=== PATIENT | female | born 1970 | race Caucasian/White ===

== ENCOUNTER 2016-05-16 17:55 | Emergency (ER) | payer OTHER ==
[2016-05-16 18:07] VITALS: BP 102/59; PULSE 84; TEMP 97.8; BMI 22.6
--- NOTE | 2016-05-16 20:32 | PDOC ---
History of Present Illness - General Chief Complaint: Pain Stated Complaint: RT LEG PAIN Time Seen by Provider: 05/16/16 19:37 History Source: Patient Exam Limitations: No Limitations - History of Present Illness Initial Comments: 05/16/16 20:26 Chief complaint: Right foot and anterior ankle pain History of present illness: Patient is a 46-year-old female here today complaining of right lateral foot and anterior ankle pain when walking or standing to lab 5 days. Patient denies any injury or fall. Patient does stand on her feet for long periods of time at her job. Patient has minimal swelling to her right lateral foot. Patient denies any numbness of the foot. Pain is currently a 5 out of 10 and aching in nature. 05/16/16 20:31 05/16/16 20:31 05/16/16 23:17 Occurred: reports: other (5 days) Severity: Yes: moderate Lower Extremity Pain Location: right: foot (lateral ), ankle (anterior) Method of Injury: Yes: unknown Modifying Factors: improves with: immobilization Lower Ext. Injury Location - Specific Injury Location Ankle: right pain (anterior) Foot: right foot pain (lateral ), right foot swelling (minimal laterally) Extremity Pain Location - Extremity Pain Location Extremity Pain Locations: right: foot (lateral ), ankle (anterior ) Past History - Past Medical History Allergies/Adverse Reactions: Allergies Allergy/AdvReac Type Severity Reaction Status Date / Time No Known Allergies Allergy Verified 05/16/16 18:03 Home Medications: Ambulatory Orders Naproxen [Naprosyn -] 500 mg PO BID PRN #14 tablet MDD 2 05/16/16 - Psycho/Social/Smoking Cessation Hx Anxiety: No Suicidal Ideation: No Smoking History: Current every day smoker Have you smoked in the past 12 months: No Number of Cigarettes Smoked Daily: 5 Information on smoking cessation initiated: Yes 'Breaking Loose' booklet given: 05/16/16 Hx Alcohol Use: No Drug/Substance Use Hx: No Substance Use Type: None Review of Systems - Review of Systems Able to Perform ROS?: Yes Constitutional: No: Symptoms Reported HEENTM: No: Symptoms Reported Respiratory: No: Symptoms reported Cardiac (ROS): No: Symptoms Reported ABD/GI: No: Symptoms Reported : No: Symptoms Reported Musculoskeletal: Yes: Joint Pain (rt. lateral foot/anterior ankle), Joint Swelling (rt. lateral foot ) Integumentary: No: Symptoms Reported Neurological: No: Symptoms reported *Physical Exam - Vital Signs Last Vital Signs Temp Pulse Resp BP Pulse Ox 97.8 F 84 18 102/59 99 05/16/16 18:02 05/16/16 18:02 05/16/16 18:02 05/16/16 18:02 05/16/16 18:02 - Physical Exam General Appearance: Yes: Appropriately Dressed Vascular Pulses: Dorsalis-Pedis (R): 4+ Extremity: positive: Normal Capillary Refill, Normal Inspection, Normal Range of Motion, Tender (rt. lateral ankle/anterior foot ), Swelling (rt. lateral foot ) Integumentary: positive: Ecchymosis (faint area of eccymosis rt. lateral dorsal foot ) Neurologic: positive: Alert, Normal Response, Respond to painful stimul (right foot ). negative: Numbness (rt. ft) Procedures - Consent Consent obtained: From Patient - Splinting Splint Location: Right: Foot, Ankle Pre-Proc Neuro Vasc Exam: normal Pre-Made Type: aircast Devon Bandage: 3" Complications: No Medical Decision Making - Medical Decision Making 05/16/16 20:31 05/16/16 20:31 Patient is a 46-year-old female here today complaining of right lateral foot and anterior ankle pain when walking or standing to lab 5 days. Patient denies any injury or fall. Patient does stand on her feet for long periods of time at her job. Patient has minimal swelling to her right lateral foot. Patient denies any numbness of the foot. Pain is currently a 5 out of 10 and aching in nature. Right lateral foot sprain rt. ankle sprain PLAN: devon wrap 3 inch rt foot/ankle aircast naprosy 500 mg bid prn 14 tabs ortho follow up *DC/Admit/Observation/Transfer Diagnosis at time of Disposition: Sprain of foot, right Qualifiers: Encounter type: initial encounter Qualified Code(s): S93.601A - Unspecified sprain of right foot, initial encounter Sprain of ankle, right Qualifiers: Encounter type: initial encounter Involved ligament of ankle: unspecified ligament Qualified Code(s): S93.401A - Sprain of unspecified ligament of right ankle, initial encounter - Discharge Dispostion Disposition: HOME Condition at time of disposition: Stable - Prescriptions Prescriptions: Naproxen [Naprosyn -] 500 mg PO BID PRN #14 tablet MDD 2 PRN Reason: Pain - Referrals Referrals: Tana Juares NP [Primary Care Provider] - Pineda Cerda MD [Staff Physician] - - Patient Instructions Additional Instructions: Apply Devon wrap during the day and use air cast for support on right foot Follow-up with orthopedist if pain continues Return to emergency room if symptoms worsen The patient voiced understanding of discharge instructions and all questions were answered - Post Discharge Activity Work/School Note: Back to Work
== END 2016-05-16 21:04 | disposition home or self-care (01) ==
LOC: JERFT 17:55
PROC: 2W3LX1Z Immobilization of Right Lower Extremity using Splint (ICD-10-PCS; principal; 2016-05-16)
DX: M79.661 Pain in right lower leg (principal); S93.491A Sprain of other ligament of right ankle, initial encounter; S93.691A Other sprain of right foot, initial encounter; X58.XXXA Exposure to other specified factors, initial encounter; Y93.89 Activity, other specified; Y92.89 Other specified places as the place of occurrence of the external cause
CPT/HCPCS: 99281-25

== ENCOUNTER 2016-07-19 15:35 | Emergency (ER) | payer OTHER ==
[2016-07-19 15:41] VITALS: BP 115/81; PULSE 88; TEMP 97.8; BMI 22.2
--- NOTE | 2016-07-19 15:49 | PDOC ---
Rapid Medical Evaluation Time Seen by Provider: 07/19/16 15:37 Medical Evaluation: Allergies Allergy/AdvReac Type Severity Reaction Status Date / Time No Known Allergies Allergy Verified 05/16/16 18:03 07/19/16 15:37 I have performed a brief in-person evaluation of this patient. The patient presents with a chief complaint of: sore throat and occipital headache x 3 days. + myalgia, no travel Pertinent physical exam findings: no pharygeal erythema, vss, I have ordered the following: none The patient will proceed to fast track for further evaluation.
--- NOTE | 2016-07-19 16:30 | PDOC ---
History of Present Illness - General Chief Complaint: Sore Throat Stated Complaint: SORE THROAT Time Seen by Provider: 07/19/16 15:37 - History of Present Illness Initial Comments: 07/19/16 16:24 CHIEF COMPLAINT: sore throat HISTORY OF PRESENT ILLNESS: 46 yo with no PMH presents to [facility] with throat pain since yesterday. Patient states she is able to swallow but "has a lot of phlegm." Patient denies any fever or cough, but does report generalized body aches and headache to back of head. Patient denies any trauma or injury to head. She denies LOC, nausea, vomiting, diarrhea. PAST MEDICAL HISTORY: Denies past medical history FAMILY HISTORY: Denies SOCIAL HISTORY: Current smoker, 3-4 cigarettes daily. Denies alcohol, illicit drug use. SURGICAL HISTORY: ALLERGIES: No known drug allergies REVIEW OF SYSTEMS General/Constitutional: Denies fever or chills. Denies weakness, weight change. HEENT: Throat pain x 1 day. Denies change in vision. Denies ear pain or discharge. Denies sore throat. Cardiovascular: Denies chest pain or shortness of breath. Respiratory: Denies cough, wheezing, or hemoptysis. Gastrointestinal: Denies nausea, vomiting, diarrhea or constipation. Denies rectal bleeding. Genitourinary: Denies dysuria, frequency, or change in urination. Musculoskeletal: Denies joint or muscle swelling or pain. Denies neck or back pain. PHYSICAL EXAM General Appearance: Well-appearing, appropriately dressed. No apparent distress. HEENT: Tonsils 1+ bilaterally, no erythema, edema, or exudate. EOMI, PERRLA, normal ENT inspection, normal voice, TMs normal, pharynx normal. No conjunctival pallor. No photophobia, scleral icterus. Neck: Supple. Trachea midline. No tenderness, rigidity, carotid bruit, stridor , lymphadenopathy, or thyromegaly. Respiratory/Chest: Lungs CTAB. Cardiovascular: RRR. S1, S2. Integumentary: Appropriate color, dry, warm. No cyanosis, erythema, jaundice or rash Neurologic: sales forecast analyst II-XII intact. Fully oriented, alert. Appropriate mood/affect. No appreciable EOM palsy, facial droop or sensory deficit. Past History - Past Medical History Allergies/Adverse Reactions: Allergies Allergy/AdvReac Type Severity Reaction Status Date / Time No Known Allergies Allergy Verified 07/19/16 15:37 Home Medications: Ambulatory Orders Ibuprofen 600 mg PO Q6H PRN #28 tablet 07/19/16 Other medical history: NONE - Psycho/Social/Smoking Cessation Hx Anxiety: No Suicidal Ideation: No Smoking History: Current every day smoker Have you smoked in the past 12 months: Yes Number of Cigarettes Smoked Daily: 4 Information on smoking cessation initiated: Yes 'Breaking Loose' booklet given: 07/19/16 Hx Alcohol Use: No Drug/Substance Use Hx: No Substance Use Type: None *Physical Exam - Vital Signs Last Vital Signs Temp Pulse Resp BP Pulse Ox 97.8 F 88 18 115/81 100 07/19/16 15:38 07/19/16 15:38 07/19/16 15:38 07/19/16 15:38 07/19/16 15:38 Medical Decision Making - Medical Decision Making 07/19/16 16:29 46 yo F with no PMH presents to ED with throat pain and body aches x 1 day. -Rapid strep and flu swabs Strep and flu negative. -600 mg ibuprofen q6h PRN body aches/fever Advised patient to take medication as prescribed and follow up with primary care doctor next week. Advised patient of signs and symptoms for return to ED. Patient verbalized understanding and agrees to plan. *DC/Admit/Observation/Transfer Diagnosis at time of Disposition: Viral syndrome - Discharge Dispostion Disposition: HOME Condition at time of disposition: Stable Admit: No - Prescriptions Prescriptions: Ibuprofen 600 mg PO Q6H PRN #28 tablet PRN Reason: Fever Or Pain - Referrals Referrals: Tana Juares NP [Primary Care Provider] - - Patient Instructions Printed Discharge Instructions: DI for Viral Syndrome Additional Instructions: Please take medication as prescribed and follow up with your primary care doctor next week. If you develop fever unresolved by Motrin; nausea; vomiting; diarrhea; chest pain; shortness of breath; weakness to one side; change in vision; difficulty speaking, swallowing, or breathing, or any new or worsening symptoms, please return to the ER. Por favor, tome los medicamentos segn lo prescrito y seguir con ronquillo mdico de atencin primaria la prxima semana. Si usted desarrolla fiebre no resuelta por Motrin; nusea; vmito; riarrea; rolor de pecho; dificultad para respirar; debilidad a un lado; cambio de visin; dificultad para hablar, tragar o respirar , o cualquier nuevo o empeoramiento de los sntomas, por favor regrese a la jimi de emergencias.
== END 2016-07-19 16:51 | disposition home or self-care (01) ==
LOC: JERFT 15:35
DX: B34.9 Viral infection, unspecified (principal)
CPT/HCPCS: 87070; 87430; 87804; 99281-25

== ENCOUNTER 2017-04-08 15:35 | Emergency (ER) | payer OTHER ==
[2017-04-08 15:43] VITALS: BP 109/74; PULSE 93; TEMP 97.4; BMI 22.6
--- NOTE | 2017-04-08 15:44 | PDOC ---
Rapid Medical Evaluation Time Seen by Provider: 04/08/17 15:38 Medical Evaluation: Allergies Allergy/AdvReac Type Severity Reaction Status Date / Time No Known Allergies Allergy Verified 04/08/17 15:38 04/08/17 15:40 Pt here with c/o : rt breast redness and lump x 3 days, No injury, no dm, had 3 years ago , + response to abx,-mammo Pt briefly examined: 1 x 2 cm erythematous tender raised mass to 3 o' clock on rt nipple. No discharge. no dimpling Pt ordered for : none pt to proceed to the main ED Discharge Disposition - Diagnosis Breast abscess of female - Discharge Dispostion Disposition: HOME Condition at time of disposition: Stable - Prescriptions Prescriptions: Cephalexin Monohydrate [Keflex -] 500 mg PO Q6H #40 capsule Ibuprofen [Motrin -] 400 mg PO QID #28 tablet - Referrals Referrals: Tana Juares NP [Primary Care Provider] - - Patient Instructions Printed Discharge Instructions: DI for Skin Abscess Additional Instructions: Warm compresses 15-20 minutes at a time 3-4 times a day. Complete course of antibiotic therapy as prescribed Return to ED immediately if any signs of infection such as fever, increasing pain, swelling, streaking redness, or if symptoms worsen or any concerns. - Post Discharge Activity Work/School Note: Back to Work
--- NOTE | 2017-04-08 17:18 | PDOC ---
History of Present Illness - General Chief Complaint: Abscess Boil Stated Complaint: ABSCESS ON CHEST/ RT ARM PAIN Time Seen by Provider: 04/08/17 15:38 History Source: Patient Exam Limitations: No Limitations - History of Present Illness Initial Comments: 04/08/17 17:13 CHIEF COMPLAINT: Painful erythematous raised area to right breast HISTORY OF PRESENT ILLNESS: Patient is a 46-year-old female with history of abscesses presents with painful, raised erythematous area is at 3:00 out a edge of right nipple. Patient reports history of the same 3 years ago and was given antibiotics and area healed. Patient denies any fever. Erythema and edema started 4 days ago to area. Timing/Duration: reports: getting worse Severity: Yes: moderate Respiratory Risk Factors: reports: no cause identified Associated Symptoms: reports: denies symptoms. denies: swelling/mass/lumps Past History - Past Medical History Allergies/Adverse Reactions: Allergies Allergy/AdvReac Type Severity Reaction Status Date / Time No Known Allergies Allergy Verified 04/08/17 15:38 Home Medications: Ambulatory Orders Cephalexin Monohydrate [Keflex -] 500 mg PO Q6H #40 capsule 04/08/17 Ibuprofen [Motrin -] 400 mg PO QID #28 tablet 04/08/17 COPD: No - Suicide/Smoking/Psychosocial Hx Smoking History: Current every day smoker Have you smoked in the past 12 months: Yes Number of Cigarettes Smoked Daily: 4 Information on smoking cessation initiated: Yes 'Breaking Loose' booklet given: 04/08/17 Hx Alcohol Use: No Drug/Substance Use Hx: No Substance Use Type: None Review of Systems - Review of Systems Constitutional: No: Symptoms Reported HEENTM: No: Symptoms Reported Respiratory: No: Symptoms reported Cardiac (ROS): No: Symptoms Reported ABD/GI: No: Symptoms Reported : No: Symptoms Reported Musculoskeletal: No: Symptoms Reported Integumentary: Yes: Erythema, Lesions, Other (no nipple discharge, dimpling, no erythema or evidence of cellulitis areas localized. ). No: Bruising, Change in Color Neurological: No: Symptoms reported Hematologic/Lymphatic: No: Symptoms Reported All Other Systems: Reviewed and Negative *Physical Exam - Vital Signs Last Vital Signs Temp Pulse Resp BP Pulse Ox 97.4 F L 93 H 18 109/74 100 04/08/17 15:39 04/08/17 15:39 04/08/17 15:39 04/08/17 15:39 04/08/17 15:39 - Physical Exam General Appearance: Yes: Appropriately Dressed. No: Apparent Distress Neck: negative: Tender lateral, Tender midline Respiratory/Chest: positive: Lungs Clear, Normal Breath Sounds. negative: Respiratory Distress, Accessory Muscle Use Cardiovascular: positive: Regular Rhythm, Regular Rate Gastrointestinal/Abdominal: positive: Normal Bowel Sounds, Soft. negative: Tender Lymphatic: negative: Adenopathy Musculoskeletal: positive: Normal Inspection Extremity: positive: Normal Capillary Refill, Normal Inspection, Normal Range of Motion, Pelvis Stable. negative: Tender Integumentary: positive: Erythema, Other (painful well-defined lesion with no induration surrounding to outer border at 3:00 on right fifth toe. No fluctuance.). negative: Swelling, Ecchymosis, Bruising Neurologic: positive: Alert, Normal Mood/Affect, Normal Response, Motor Strength 5/5 Medical Decision Making - Medical Decision Making 04/08/17 17:20 A/P: Patient with abscess to right breast well-defined, no surrounding cellulitis. Area is nonfluctuant will start patient on antibiotics warm soaks to area which strict follow-up with surgery or return back to ER. No area of fluctuance to obtain culture past chart reviewed and patient passed culture was susceptible to Keflex. Will start patient on Keflex no evidence of MRSA high suspicion for folliculitis near the hair follicle. I discussed the physical exam findings, ancillary test results and final diagnoses with the patient. I answered all of the patient's questions. The patient was satisfied with the care received and felt comfortable with the discharge plan and treatment plan. The patient will call to arrange follow-up and will return to the Emergency Department with any new, persistent or worsening symptoms. *DC/Admit/Observation/Transfer Diagnosis at time of Disposition: Breast abscess of female - Discharge Dispostion Disposition: HOME Condition at time of disposition: Stable Admit: No - Prescriptions Prescriptions: Cephalexin Monohydrate [Keflex -] 500 mg PO Q6H #40 capsule Ibuprofen [Motrin -] 400 mg PO QID #28 tablet - Referrals Referrals: aTna Juares NP [Primary Care Provider] - - Patient Instructions Printed Discharge Instructions: DI for Skin Abscess Additional Instructions: Warm compresses 15-20 minutes at a time 3-4 times a day. Complete course of antibiotic therapy as prescribed Return to ED immediately if any signs of infection such as fever, increasing pain, swelling, streaking redness, or if symptoms worsen or any concerns. - Post Discharge Activity Forms/Work/School Notes: Back to Work
== END 2017-04-08 17:37 | disposition home or self-care (01) ==
LOC: JERFT 15:35
DX: N61.1 Abscess of the breast and nipple (principal)
CPT/HCPCS: 99281-25

== ENCOUNTER 2017-09-25 19:53 | Emergency (ER) | payer SELFPAY ==
--- NOTE | 2017-09-25 19:56 | PDOC ---
Rapid Medical Evaluation Time Seen by Provider: 09/25/17 19:54 Medical Evaluation: Allergies Allergy/AdvReac Type Severity Reaction Status Date / Time No Known Allergies Allergy Verified 04/08/17 15:38 09/25/17 19:54 I have performed a brief in-person evaluation of this patient. The patient presents with a chief complaint of: chin cyst for 6 months Pertinent physical exam findings: firm mobile submental mass I have ordered the following: nothing The patient will proceed to the ED for further evaluation. Discharge Disposition - Diagnosis Mass of chin - Referrals - Patient Instructions - Post Discharge Activity
[2017-09-25 20:02] VITALS: BP 111/74; PULSE 86; TEMP 98.1; BMI 22.6
--- NOTE | 2017-09-25 21:42 | PDOC ---
History of Present Illness - General Chief Complaint: Abscess Boil Stated Complaint: ABSCESS BOIL Time Seen by Provider: 09/25/17 19:54 History Source: Patient Exam Limitations: No Limitations - History of Present Illness Initial Comments: 09/25/17 21:38 47-year-old female with worsening mass underneath her chin for the past 2 years stating discomfort has increased for the past few months. Patient states was seen by a surgeon and a manager produce and was given pills but states that this time she feels she needs surgery. Patient denies fever, chills or drainage. Patient states does not have insurance so November 09 but is uncomfortable and is asking for pain meds along with a referral to another surgeon. Timing/Duration: reports: constant, getting worse Severity: Yes: mild Location: reports: face Respiratory Risk Factors: reports: no cause identified Associated Symptoms: reports: swelling/mass/lumps Past History - Past Medical History Allergies/Adverse Reactions: Allergies Allergy/AdvReac Type Severity Reaction Status Date / Time No Known Allergies Allergy Verified 09/25/17 19:57 Home Medications: Ambulatory Orders NK [No Known Home Medication] 09/25/17 COPD: No - Suicide/Smoking/Psychosocial Hx Smoking History: Current every day smoker Have you smoked in the past 12 months: Yes Number of Cigarettes Smoked Daily: 5 Information on smoking cessation initiated: Yes 'Breaking Loose' booklet given: 09/25/17 Hx Alcohol Use: No Drug/Substance Use Hx: No Substance Use Type: None Patient Lives Alone: No Lives with/in: spouse/SO Review of Systems - Review of Systems Able to Perform ROS?: No Constitutional: No: Symptoms Reported HEENTM: No: Symptoms Reported Respiratory: No: Symptoms reported Cardiac (ROS): No: Symptoms Reported ABD/GI: No: Symptoms Reported : No: Symptoms Reported Musculoskeletal: No: Symptoms Reported Integumentary: Yes: Lumps. No: Erythema Neurological: No: Symptoms reported *Physical Exam - Vital Signs Last Vital Signs Temp Pulse Resp BP Pulse Ox 98.1 F 86 18 111/74 100 09/25/17 19:58 09/25/17 19:58 09/25/17 19:58 09/25/17 19:58 09/25/17 19:58 - Physical Exam General Appearance: Yes: Nourished, Appropriately Dressed. No: Apparent Distress Integumentary: positive: Other (noted raised purpleish papule measuring 2 x 0.5 cm to submental region. ) Neurologic: positive: Motor Strength 5/5 (ambulatory) Medical Decision Making - Medical Decision Making 09/25/17 21:45 Patient worsening mass to her submental region. Patient ordered for facial CT. Facial CT read as a 1.8 x 1.5 cystic lesion. Pt to be given Percocet here and discharged with the same. Patient also will be given referral to Dr. Hurst general surgeon *DC/Admit/Observation/Transfer Diagnosis at time of Disposition: Mass of chin - Discharge Dispostion Disposition: HOME - Referrals Referrals: Tana Juares NP [Primary Care Provider] - Jorge Hurst MD [Staff Physician] - - Patient Instructions Printed Discharge Instructions: DI for Epidermal Cyst Additional Instructions: take Percocet for discomfort and please follow up with referred surgeon. - Post Discharge Activity
== END 2017-09-25 21:54 | disposition home or self-care (01) ==
LOC: JERFT 19:53
DX: L72.8 Other follicular cysts of the skin and subcutaneous tissue (principal)
CPT/HCPCS: 70486-TC; 99281-25

== ENCOUNTER 2017-09-29 14:21 | Emergency (ER) | payer SELFPAY ==
--- NOTE | 2017-09-29 14:32 | PDOC ---
Rapid Medical Evaluation Time Seen by Provider: 09/29/17 14:31 Medical Evaluation: Allergies Allergy/AdvReac Type Severity Reaction Status Date / Time No Known Allergies Allergy Verified 09/25/17 19:57 09/29/17 14:33 Healthy 47 year old female with 6 months of submental mass. Seen here 09/[address] reporting cystic mass of uncertain etiology. Given pain meds and surgery referral, but does not feel that she can wait. Now complains of dizziness, subjective fever/chills. Alert, oriented, no distress. Fluctuant submental mass, erythematous, with central pustule that appears to have been draining recently. V/s unremarkable. Plan: -Basic labs given systemic complaints and possible need for procedure -To Main ED for further evaluation
[2017-09-29 14:36] VITALS: BP 102/75; PULSE 88; TEMP 98.1; BMI 22.6
[2017-09-29 15:52] LABS: INR 0.98 (0.82-1.09); PROTHROMBIN TIME (PATIENT) 11.1 SEC (9.7-13.0)
[2017-09-29 16:01] LABS: ANION GAP 5 (8-16); BILIRUBIN,TOTAL 0.2 mg/dL (0.2-1.0); BLOOD UREA NITROGEN 11 mg/dL (7-18); CHLORIDE 110 mmol/L (98-107); CO2 28 mmol/L (21-32); CREATININE 0.8 mg/dL (0.55-1.02); GLUCOSE,RANDOM 115 mg/dL (74-106); POTASSIUM 3.6 mmol/L (3.5-5.1); SODIUM 143 mmol/L (136-145)
[2017-09-29 16:08] LABS: BASO % 0.5 % (0-2.0); EOS % 1.8 % (0-4.5); HEMATOCRIT 42.7 % (32.4-45.2); HEMOGLOBIN 14.2 GM/dL (10.7-15.3); LYMPH % 36.6 % (8-40); MCH 29.7 pg (25.7-33.7); MCHC 33.4 g/dl (32.0-36.0); MEAN PLT VOLUME 8.3 fl (7.5-11.1); MONO % 4.1 % (3.8-10.2); PLATELET COUNT 231 K/MM3 (134-434); WHITE BLOOD COUNT 6.3 K/mm3 (4.0-10.0)
[2017-09-29 16:31] LABS: ALK PHOS 89 U/L (45-117); SGOT/AST 16 U/L (15-37); SGPT/ALT 24 U/L (12-78)
--- NOTE | 2017-09-29 17:19 | PDOC ---
Attending Attestation - HPI HPI: 09/29/17 17:24 The patient is a 47 year old female with no significant past medical history presents to the emergency department with a worsening submental mass for the past 2 years. The patient was seen on the by SUDHIR Hein who prescribed her Percocet. The patient has a MRI done in 2016 which showed an increase in the mass size. The origin of the mass doesn't appear to be dental. The patient denies any complication to the air way. Denies any purulent or bloody discharge. Allergies: NKDA Social history: History of smoking. Denies the use of alcohol or illicit drugs. PCP: Dr. Tana Juares 09/29/17 20:52 - Physicial Exam PE: 09/29/17 17:24 GENERAL: Well developed, well nourished. Awake and alert. No acute distress. HEENT:No abcess in the oral cavity. In the oral cavity doesnt appear any continuation the the roof of the mouth. reproducible occlusion. Normocephalic, atraumatic. PERRLA, EOMI. No conjunctival pallor. Sclera are non- icteric. Moist mucous membranes. Oropharynx is clear. NECK: (+) 2 cm circular mass with abscess. No airway compromise. Supple. Full ROM. No JVD. Carotid pulses 2+ and symmetric, without bruits. No Trismus. - Medical Decision Making 09/29/17 17:25 Documentation prepared by Laly Laguna, acting as medical laboratory manager for Paty López MD. 09/29/17 17:25 Dr. Webb was called at 5:09 PM and a voicemail was left. <Laly Laguna - Last Filed: 09/29/17 20:52> - Resident Resident Name: Rene Elliott - ED Attending Attestation I have performed the following: I have examined & evaluated the patient, The case was reviewed & discussed with the resident, I agree w/resident's findings & plan, Exceptions are as noted - HPI HPI: 09/29/17 17:17 47-year-old female who is had an infected cyst under her chin for the past several years and it has become infected. She recently was seen in the ER and started on antibiotics. - Physicial Exam PE: 09/29/17 17:19 37-year-old female who fell mental status is intact. Initial evaluation has no significant dental abscesses, there are no buccal or sublingual fast swellings, reproducible occlusion, no trismus There is a noted 2 cm round nodule under her chin has some erythema, but there is no streaking or significant is there swelling. There is no evidence of cellulitis - Medical Decision Making 09/29/17 17:22 Labs reviewed and her white count is within normal limits, she has no fever 10/01/17 00:24 PT STARTED ON ANTIBIOTICS,BACITRACIN OINTMENT THE CYST IS DRAINING PURULENCE PT TO TAKE HER ANTIBIOTICS S AND FOLLOW UP WITH DERMATOLOGY DR Person <Paty López - Last Filed: 10/01/17 00:25>
--- NOTE | 2017-09-29 18:35 | PDOC ---
History of Present Illness <Paty López - Last Filed: 09/29/17 18:35> - General History Source: Patient Exam Limitations: No Limitations - History of Present Illness Initial Comments: 09/29/17 19:08 The patient is a 47 year old female with no significant past medical history presents to the emergency department with a worsening submental mass for the past 2 years. The patient was seen on the by SUDHIR Hein who prescibed her Percocet . The patient has a MRI done in 2016 which showed an increase in the mass size. The origin of the mass doesn't appear to be dental. The patient denies any complication to the air way. Denies any purulent or bloody discharge. Allergies: NKDA Social history: History of smoking. Denies the use of alcohol or illicit drugs. <Laly Laguna - Last Filed: 09/29/17 20:52> - General Chief Complaint: Abscess Boil Stated Complaint: REVISIT, ABSCESS BOIL Time Seen by Provider: 09/29/17 14:31 Past History - Past Medical History COPD: No Other medical history: DENIES. - Suicide/Smoking/Psychosocial Hx Smoking History: Current every day smoker Have you smoked in the past 12 months: Yes Number of Cigarettes Smoked Daily: 5 Information on smoking cessation initiated: No 'Breaking Loose' booklet given: 09/25/17 Hx Alcohol Use: No Drug/Substance Use Hx: No Substance Use Type: None <Paty López - Last Filed: 09/29/17 18:35> <Laly Laguna - Last Filed: 09/29/17 20:52> - Past Medical History Allergies/Adverse Reactions: Allergies Allergy/AdvReac Type Severity Reaction Status Date / Time No Known Allergies Allergy Verified 09/29/17 14:32 Home Medications: Ambulatory Orders Oxycodone HCl/Acetaminophen [Percocet 5-325 mg Tablet] 1 - 2 tab PO Q6H PRN #12 tab MDD 4 09/25/17 Bacitracin - [Bacitracin Topical Ointment -] 1 applic TP TID PRN #1 tube Sulfamethoxazole/Trimethoprim [Bactrim Ds -] 1 tab PO DAILY #20 tablet 09/29/17 Review of Systems - Review of Systems Able to Perform ROS?: Yes Comments:: 09/29/17 19:09 CONSTITUTIONAL: Absent: fever, no chills, no fatigue EYES: Absent: visual changes ENT:(+) Mass under the chin. Absent: ear pain, no sore throat MUSKULOSKELETAL: Absent: back pain, no arthralgia, no myalgia SKIN: Absent: rash NEURO: Absent: headache <Laly Laguna - Last Filed: 09/29/17 20:52> *Physical Exam - Vital Signs Last Vital Signs Temp Pulse Resp BP Pulse Ox 98.1 F 88 19 102/75 100 09/29/17 14:32 09/29/17 14:32 09/29/17 14:32 09/29/17 14:32 09/29/17 14:32 <Paty López - Last Filed: 09/29/17 18:35> - Vital Signs Last Vital Signs Temp Pulse Resp BP Pulse Ox 98.1 F 88 19 102/75 100 09/29/17 14:32 09/29/17 14:32 09/29/17 14:32 09/29/17 14:32 09/29/17 14:32 - Physical Exam Comments: 09/29/17 19:07 GENERAL: Well developed, well nourished. Awake and alert. No acute distress. HEENT:No abcess in the oral cavity. In the oral cavity doesnt appear any continuation the the roof of the mouth. reproducible occlusion. Normocephalic, atraumatic. PERRLA, EOMI. No conjunctival pallor. Sclera are non- icteric. Moist mucous membranes. Oropharynx is clear. NECK: (+) 2 cm circular mass with abscess. No airway compromise. Supple. Full ROM. No JVD. Carotid pulses 2+ and symmetric, without bruits. No Trismus. As the patient was waiting to be discharged, the mass started to drain pus. <Laly Laguna - Last Filed: 09/29/17 20:52> Moderate Sedation - Procedure Monitoring Vital Signs: Vital Signs Temp Pulse Resp BP Pulse Ox 98.1 F 88 19 102/75 100 09/29/17 14:32 09/29/17 14:32 09/29/17 14:32 09/29/17 14:32 09/29/17 14:32 <Paty López - Last Filed: 09/29/17 18:35> - Procedure Monitoring Vital Signs: Vital Signs Temp Pulse Resp BP Pulse Ox 98.1 F 88 19 102/75 100 09/29/17 14:32 09/29/17 14:32 09/29/17 14:32 09/29/17 14:32 09/29/17 14:32 <Laly Laguna - Last Filed: 09/29/17 20:52> ED Treatment Course - LABORATORY CBC & Chemistry Diagram: 09/29/17 15:21 09/29/17 15:21 - ADDITIONAL ORDERS Additional order review: Laboratory Results 09/29/17 09/29/17 09/29/17 15:27 15:21 15:21 PT with INR 11.10 INR 0.98 Sodium 143 Potassium 3.6 Chloride 110 H Carbon Dioxide 28 Anion Gap 5 L BUN 11 Creatinine 0.8 Creat Clearance w eGFR > 60 Random Glucose 115 H Calcium 9.0 Total Bilirubin 0.2 AST 16 ALT 24 Alkaline Phosphatase 89 Total Protein 7.0 Albumin 4.0 Urine HCG, Qual Negative 09/29/17 15:21 RBC 4.80 MCV 89.0 MCHC 33.4 RDW 13.0 MPV 8.3 Neutrophils % 57.0 Lymphocytes % 36.6 Monocytes % 4.1 Eosinophils % 1.8 Basophils % 0.5 <Paty López - Last Filed: 09/29/17 18:35> - LABORATORY CBC & Chemistry Diagram: 09/29/17 15:21 09/29/17 15:21 - ADDITIONAL ORDERS Additional order review: Laboratory Results 09/29/17 09/29/17 09/29/17 15:27 15:21 15:21 PT with INR 11.10 INR 0.98 Sodium 143 Potassium 3.6 Chloride 110 H Carbon Dioxide 28 Anion Gap 5 L BUN 11 Creatinine 0.8 Creat Clearance w eGFR > 60 Random Glucose 115 H Calcium 9.0 Total Bilirubin 0.2 AST 16 ALT 24 Alkaline Phosphatase 89 Total Protein 7.0 Albumin 4.0 Urine HCG, Qual Negative 09/29/17 15:21 RBC 4.80 MCV 89.0 MCHC 33.4 RDW 13.0 MPV 8.3 Neutrophils % 57.0 Lymphocytes % 36.6 Monocytes % 4.1 Eosinophils % 1.8 Basophils % 0.5 <Laly Laguna - Last Filed: 09/29/17 20:52> *DC/Admit/Observation/Transfer <Paty López - Last Filed: 09/29/17 18:35> - Attestations Scribe Attestion: 09/29/17 19:10 Documentation prepared by Laly Laguna, acting as medical director for Paty López MD. <Laly Laguna - Last Filed: 09/29/17 20:52> Diagnosis at time of Disposition: Infected cyst of skin - Discharge Dispostion Disposition: HOME Condition at time of disposition: Stable - Prescriptions Prescriptions: Bacitracin - [Bacitracin Topical Ointment -] 1 applic TP TID PRN #1 tube PRN Reason: Wound Care Sulfamethoxazole/Trimethoprim [Bactrim Ds -] 1 tab PO DAILY #20 tablet - Referrals Referrals: Meghan Eastman MD [Staff Physician] - Law Webb MD [Staff Physician] - Arielle Young MD [Staff Physician] - - Patient Instructions Printed Discharge Instructions: DI for Skin Abscess Additional Instructions: FINISH YOUR ANTIBIOTICS YOU NEED TO FOLLOW UP WITH THE AUTO MECHANICS INSTRUCTOR OR THE PLASTIC SURGEON TO HAVE IT REMOVED
[2017-09-29] MEDS ORDERED: SULFAMETHOXAZOLE/TRIMETHOPRIM 800MG/160MG D.S. TABLET PO ONE (19:05)
[2017-09-29] MEDS ORDERED: SULFAMETHOXAZOLE/TRIMETHOPRIM 800MG/160MG D.S. TABLET ONE (19:12)
== END 2017-09-29 19:27 | disposition home or self-care (01) ==
LOC: JER 14:21
DX: L72.8 Other follicular cysts of the skin and subcutaneous tissue (principal)
CPT/HCPCS: 36415; 80053; 84703; 85025; 85610; 99282-25

== ENCOUNTER 2018-02-11 11:47 | Emergency (ER) | payer OTHER ==
[2018-02-11 11:54] VITALS: BP 106/79; PULSE 91; TEMP 98.8; BMI 22.6
[2018-02-11] MEDS ORDERED: ASPIRIN 81 MG CHEWABLE TABLETS PO ONE (12:21)
--- NOTE | 2018-02-11 13:47 | PDOC ---
Attending Attestation - Resident Resident Name: GemLuan - ED Attending Attestation I have performed the following: I have examined & evaluated the patient, The case was reviewed & discussed with the resident, I agree w/resident's findings & plan, Exceptions are as noted - HPI HPI: 02/11/18 13:43 47 F with no PMH presents to ED with L sided chest, back, and shoulder pain. Pt states that she started coughing about 4 days ago. Denies F/C. Pt subsequently developed L upper back pain that gradually progressed to her chest and shoulder as well. Pt denies SOB but states the pain is worse with deep inspiration. Pain is also exacerbated by turning to the side and movement of her LUE. Pt denies any leg swelling. Denies recent travel/immobilization. No h/o DVT/PE. Not on OCP or estrogen. Pt notes that she had a family member who had an SD in their 30s. She is a current smoker. - Physicial Exam PE: 02/11/18 13:45 GENERAL: Awake, alert, and fully oriented, in no acute distress. HEAD: No signs of trauma EYES: PERRLA, EOMI, sclera anicteric, conjunctiva clear ENT: Auricles normal inspection, hearing grossly normal, nares patent, oropharynx clear without exudates. Moist mucosa NECK: Nontender, no stepoffs, Normal ROM, supple, no lymphadenopathy, JVD, or masses LUNGS: + L sided rales, no rhonchi, no wheezes HEART: Regular rate and rhythm, normal S1 and S2, no murmurs, rubs or gallops CHEST: + TTP L chest wall and upper back, no crepitus ABDOMEN: Soft, nontender, normoactive bowel sounds. No guarding, no rebound. No masses EXTREMITIES: Normal range of motion, no edema. No clubbing or cyanosis. No cords, erythema, or tenderness NEUROLOGICAL: Cranial nerves II through XII intact. 5/5 strength and sensation in all extremities, Normal speech, normal gait, normal cerebellar function SKIN: Warm, Dry, normal turgor, no rashes or lesions noted. - Medical Decision Making 02/11/18 13:46 47 F with reproducible L sided chest and upper back pain that is worse with movement of her LUE. Suspect msk pain 2/2 coughing. Possible PNA given rales on L side. Will r/o ACS given FH of early SD. Pt with no PE risk factors, normal vitals. PERC score 0. Pt with normal pulses and BP, making dissection unlikely as well. - Labs, trop - CXR - Pain control 02/11/18 15:24 Labs wnl, trop negative CXR clear Pt with HEART score <4. Very low suspicion for cardiac chest pain. PERC score 0, making PE extremely unlikely as well. Suspect msk pain 02/11/18 16:00 Pt reassessed - feels much better s/p toradol Will DC with Z-pack for clinical suspicion of PNA, as pt has cough and rales on lung exam Pt is well appearing, with normal vitals. Clinically stable for DC at this time. I discussed the physical exam findings, ancillary test results and final diagnoses with the patient. I answered all of the patient's questions. The patient was satisfied with the care received and felt comfortable with the discharge plan and treatment plan. The patient agrees to follow up with the primary care physician within 24-72 hours. Heart Score/ECG Review - History History: Slightly suspicious - Electrocardiogram EKG: Normal - Age Age: 45-65 - Risk Factors Risk Factors Heart Score: Yes Smoking History, Yes Positive family hx of cardiac disease Based on the list above the patient has:: 1-2 risk factors - Troponin Troponin: </= normal limit - Score Heart Score - Total: 2
--- NOTE | 2018-02-11 14:16 | PDOC ---
History of Present Illness - General Chief Complaint: Chest Pain Stated Complaint: CHEST PAIN, LEFT SIDE BACK PAIN Time Seen by Provider: 02/11/18 12:20 History Source: Patient, [employer] Used Exam Limitations: Language Barrier - History of Present Illness Initial Comments: 02/11/18 14:10 *pt is Citizen Of [place] speaking. [employer] [id number] translated for patient. Pt is a 47yo m with no significant PMH presenting to ED with complaints of chest pain. Pt said 2 days ago she had left shoulder pain, which she usually gets which she takes Tylenol for. She then started to get chest pain when she woke up this morning at 6am. Pt said she never had pain like this before. She says the pain is on and off, sharp, is located in the L shoulder and L chest. Sometimes taking deep breaths makes it worse, but not all the time. She also admits to dry cough that she has been having for the past 4 days. She denies fever, chills, hemoptysis, n/v/d, abdominal pain. She admits to chronic neck pain, it is not different today. Pt said she took 2 aspirins in the morning but she does not recall the strength. Her brother had an PR when he was in his late 30s. She is menopausal, does not take any hormonal pills. PMH: none PSH: none Meds: Tylenol Allergies: nkda Social: smokes 5 cigarettes/day. Denies alcohol, illicit drug use Past History - Past Medical History Allergies/Adverse Reactions: Allergies Allergy/AdvReac Type Severity Reaction Status Date / Time No Known Allergies Allergy Verified 02/11/18 11:54 Home Medications: Ambulatory Orders Azithromycin [Zithromax -] 250 mg PO UTDICT #6 tab 02/11/18 COPD: No DVT: No - Suicide/Smoking/Psychosocial Hx Smoking History: Current every day smoker Have you smoked in the past 12 months: Yes Number of Cigarettes Smoked Daily: 5 Information on smoking cessation initiated: Yes 'Breaking Loose' booklet given: 02/11/18 Hx Alcohol Use: No Drug/Substance Use Hx: No Substance Use Type: None Review of Systems - Review of Systems Able to Perform ROS?: Yes (tie man used) Is the patient limited Kinyarwanda proficient: Yes Constitutional: No: Chills, Fever, Weakness HEENTM: No: Recent change in vision Respiratory: Yes: Cough. No: Hemoptysis Cardiac (ROS): Yes: Chest Pain (L sided), Palpitations. No: Edema, Lightheadedness, Syncope ABD/GI: No: Constipated, Diarrhea, Nausea, Rectal Bleeding, Vomiting, Abdominal cramping : No: Dysuria, Hematuria Musculoskeletal: Yes: Back Pain (L sided shoulder pain), Muscle Pain (L chest), Neck Pain (chronic). No: Joint Swelling, Joint Stiffness Integumentary: No: Rash Neurological: Yes: Numbness (in the hands). No: Headache, Weakness *Physical Exam - Vital Signs Last Vital Signs Temp Pulse Resp BP Pulse Ox 98.8 F 91 H 17 106/79 98 02/11/18 11:52 02/11/18 11:52 02/11/18 11:52 02/11/18 11:52 02/11/18 11:52 - Physical Exam Comments: 02/11/18 14:23 Pt sitting in hallway stretcher comfortably General Appearance: Yes: Nourished, Appropriately Dressed. No: Apparent Distress HEENT: positive: EOMI, MARCELO, Pharynx Normal. negative: Pale Conjunctivae, Scleral Icterus (R), Scleral Icterus (L), Nasal Congestion, Rhinorrhea Neck: positive: Trachea midline, Supple. negative: Carotid bruit, Lymphadenopathy (R), Lymphadenopathy (L) Respiratory/Chest: positive: Chest Tender (L sided chest tenderness), Lungs Clear, Normal Breath Sounds. negative: Crackles, Rales, Rhonchi, Stridor, Wheezing Cardiovascular: positive: Regular Rhythm, Regular Rate, S1, S2. negative: Edema , JVD, Murmur Vascular Pulses: Carotid (R): 2+, Carotid (L): 2+, Dorsalis-Pedis (R): 2+, Doralis-Pedis (L): 2+ Gastrointestinal/Abdominal: positive: Normal Bowel Sounds, Soft. negative: Distended, Guarding, Rebound, Tenderness Musculoskeletal: positive: Normal Inspection. negative: CVA Tenderness Extremity: positive: Normal Capillary Refill Integumentary: positive: Normal Color, Dry, Warm Neurologic: positive: pipe stem sawyer II-XII NML intact, Fully Oriented, Alert, Normal Mood/ Affect, Normal Response, Motor Strength 5/5 Deep Tendon Reflexes: Ankle (L): 2+, Ankle (R): 2+, Knee (L): 2+, Knee (R): 2+ ED Treatment Course - LABORATORY CBC & Chemistry Diagram: 02/11/18 14:30 02/11/18 14:30 *DC/Admit/Observation/Transfer Diagnosis at time of Disposition: Chest pain Qualifiers: Chest pain type: unspecified Qualified Code(s): R07.9 - Chest pain, unspecified Pneumonia Qualifiers: Pneumonia type: due to unspecified organism Laterality: unspecified laterality Lung location: unspecified part of lung Qualified Code(s): J18.9 - Pneumonia, unspecified organism - Discharge Dispostion Disposition: HOME Condition at time of disposition: Improved Decision to Admit order: No - Prescriptions Prescriptions: Azithromycin [Zithromax -] 250 mg PO UTDICT #6 tab - Referrals - Patient Instructions Printed Discharge Instructions: DI for Chest Pain, DI for Atypical Pneumonia, How to Quit Smoking Additional Instructions: Usted fue visto aqu hoy para la evaluacin del dolor en el pecho. Todas tus pruebas fueron normales. Debido a la tos y la preocupacin por la neumona, le recetaron Z-bebe. La receta fue enviada a [facility] en [facility]. Por favor tome justice se indica. Recuerde hacer stacy gary con ronquillo mdico dentro de la semana para stacy evaluacin adicional. Puedes marjorie Motrin para el dolor. Por favor, trate de dejar de fumar! Regrese a la jimi de emergencias si: el dolor en el pecho empeora, tiene dificultad para respirar, tiene fiebre, comienza a toser annika, se siente mareado o aturdido, pierde el conocimiento o si aparece algn sntoma nuevo. Severo You were seen here today for evaluation of chest pain. All your tests were normal. Because of the cough, and concern for pneumonia you were prescribed Z-bebe. The prescription was sent to [facility]. Please take as directed. Remember to make an appointment with your doctor within the week for further evaluation. You can take Motrin for pain. Please try to stop smoking! Please come back to the emergency room if: chest pain gets worse, you have shortness of breath, you develop fever, you start to cough blood, you feel lightheaded or dizzy, you lose consciousness or if any new concerning symptom develops. Thank you Print Language: MACEDONIAN - Post Discharge Activity
[2018-02-11] MEDS ORDERED: KETOROLAC TROMETHAMINE 30 MG/1 ML VIAL IM ONE (14:26)
[2018-02-11] MEDS ORDERED: ASPIRIN 325 MG ENTERIC COATED TABLET (FP) ONE (14:39)
[2018-02-11] MEDS ORDERED: KETOROLAC TROMETHAMINE 30 MG/1 ML VIAL ONE (14:39)
[2018-02-11 14:46] LABS: BASO % 0.7 % (0-2.0); HEMOGLOBIN 15.3 GM/dL (10.7-15.3); LYMPH % 40.7 % (8-40); MCH 30.2 pg (25.7-33.7); MEAN CELL VOLUME 88.7 fl (80-96); MEAN PLT VOLUME 8.9 fl (7.5-11.1); MONO % 6.2 % (3.8-10.2); NEUT % 50.4 % (42.8-82.8); PLATELET COUNT 227 K/MM3 (134-434); RBC 5.07 M/mm3 (3.60-5.2); RDW 13.8 % (11.6-15.6); WHITE BLOOD COUNT 5.6 K/mm3 (4.0-10.0)
[2018-02-11 14:59] LABS: PROTHROMBIN TIME (PATIENT) 11.8 SEC (9.7-13.0)
[2018-02-11 15:18] LABS: ALBUMIN 3.7 g/dl (3.4-5.0); ALK PHOS 82 U/L (45-117); ANION GAP 10 MMOL/L (8-16); BILIRUBIN,TOTAL 0.3 mg/dL (0.2-1); BLOOD UREA NITROGEN 11 mg/dL (7-18); CALCIUM 8.4 mg/dL (8.5-10.1); CHLORIDE 112 mmol/L (98-107); CO2 20 mmol/L (21-32); CREATININE 0.6 mg/dL (0.55-1.3); GLUCOSE,RANDOM 95 mg/dL (74-106); POTASSIUM 3.9 mmol/L (3.5-5.1); SGOT/AST 13 U/L (15-37); SGPT/ALT 28 U/L (13-61); SODIUM 142 mmol/L (136-145); TOT PROT 6.8 g/dl (6.4-8.2)
--- NOTE | 2018-02-12 22:07 | EKG ---
Test Reason : Blood Pressure : / mmHG Vent. Rate : 078 BPM Atrial Rate : 078 BPM P-R Int : 146 ms QRS Dur : 082 ms QT Int : 370 ms P-R-T Axes : 065 -63 057 degrees QTc Int : 421 ms NORMAL SINUS RHYTHM PULMONARY DISEASE PATTERN LEFT ANTERIOR FASCICULAR BLOCK ABNORMAL ECG NO PREVIOUS ECGS AVAILABLE Confirmed by AUGUSTIN GRUBBS MD ([id number]) on 02/12/2018 10:07:29 PM Referred By: Confirmed By:AUGUSTIN GRUBBS MD
== END 2018-02-11 16:21 | disposition home or self-care (01) ==
LOC: JER 11:47
PROC: 3E0233Z Introduction of Anti-inflammatory into Muscle, Percutaneous Approach (ICD-10-PCS; principal; 2018-02-11)
DX: J18.9 Pneumonia, unspecified organism (principal); R07.9 Chest pain, unspecified; F17.210 Nicotine dependence, cigarettes, uncomplicated
CPT/HCPCS: 36415; 71046-TC-FY; 80053; 82550; 84484; 84703; 85025; 85610; 93005; 93010; 96372; 99284-25

== ENCOUNTER 2018-08-12 23:59 | Emergency (ER) | payer OTHER ==
--- NOTE | 2018-08-13 01:16 | PDOC ---
Medical Decision Making - Medical Decision Making 08/13/18 01:16Patient seen by the advanced practice provider under my direct supervision. Ancillary testing reviewed as necessary. I agree with plan as outlined by the advanced practice provider. *DC/Admit/Observation/Transfer Diagnosis at time of Disposition: Viral syndrome - Discharge Dispostion Condition at time of disposition: Fair - Referrals - Patient Instructions - Post Discharge Activity
[2018-08-13 01:32] VITALS: TEMP 97.6; BMI 22.6
--- NOTE | 2018-08-13 01:34 | PDOC ---
History of Present Illness - General Chief Complaint: Nausea/Vomiting Stated Complaint: VOMITING HEADACE Time Seen by Provider: 08/13/18 01:14 History Source: Patient Exam Limitations: No Limitations - History of Present Illness Initial Comments: 08/13/18 01:32 HISTORY OF PRESENT ILLNESS: 48-year-old woman presents emergency department for evaluation of sore throat, headache, vomiting, body aches and subjective fevers starting today. Patient took amoxicillin, Tylenol and tramadol prior to coming to the emergency department. Diga-xes-goxmagh remedies had minimal effect on her symptoms. No recent travel or sick contacts. PAST MEDICAL HISTORY: Denies past medical history SURGICAL HISTORY: Denies ALLERGIES: No known drug allergies REVIEW OF SYSTEMS General/Constitutional: +fever. Denies weakness, weight change. HEENT: Denies change in vision. Denies ear pain or discharge. +sore throat. Cardiovascular: Denies chest pain or shortness of breath. Respiratory: Moist productive cough. Denies wheezing, or hemoptysis. Gastrointestinal: Denies nausea, vomiting, diarrhea or constipation. Denies rectal bleeding. Genitourinary: Denies dysuria, frequency, or change in urination. Musculoskeletal: +myalgias. Denies neck or back pain. Skin and breasts: Denies rash or easy bruising. Neurologic: Denies headache, vertigo, loss of consciousness, or loss of sensation. Psychiatric: Denies depression or anxiety. Endocrine: Denies increased thirst. Denies abnormal weight change. Hematologic/Lymphatic: Denies anemia, easy bleeding, or history of blood clots. Allergic/Immunologic: Denies hives or skin allergy. Denies latex allergy. PHYSICAL EXAM General Appearance: Well-appearing, appropriately dressed. No apparent distress , no intoxication. HEENT: EOMI, PERRLA, normal voice, TMs retracted bilaterally. No conjunctival pallor. No photophobia, scleral icterus. Oropharynx erythematous without lesions or exudate. Cobblestoning noted in the posterior. No nasal discharge present. Neck: Supple. Trachea midline. No tenderness, rigidity, carotid bruit, stridor , or thyromegaly. Nontender anterior cervical lymphadenopathy present. Respiratory/Chest: Lungs CTAB. No shortness of breath, chest tenderness, respiratory distress, accessory muscle use. No crackles, rales, rhonchi, stridor , wheezing, dullness Cardiovascular: RRR. S1, S2. No JVD, murmur, bradycardia, tachycardia. Vascular Pulses: Dorsalis-Pedis (R): 2+, Dorsalis-Pedis (L): 2+ Gastrointestinal/Abdominal: Normal bowel sounds. Abdomen soft, non-distended. No tenderness or rebound tenderness. No organomegaly, pulsatile mass, guarding, hernia, hepatomegaly, splenomegaly. Musculoskeletal/Extremities: Normal inspection. FROM of all extremities, normal capillary refill. Pelvis Stable. No CVA tenderness. No tenderness to extremities, pedal edema, swelling, erythema or deformity. Integumentary: Appropriate color, dry, warm. No cyanosis, erythema, jaundice or rash Neurologic: physical therapy aide II-XII intact. Fully oriented, alert. Appropriate mood/affect. Motor strength 5/5. No appreciable EOM palsy, facial droop or sensory deficit. 08/14/18 00:23 Past History - Past Medical History Allergies/Adverse Reactions: Allergies Allergy/AdvReac Type Severity Reaction Status Date / Time No Known Allergies Allergy Verified 08/13/18 01:33 Home Medications: Ambulatory Orders Azithromycin [Zithromax 250mg Tablets -] 250 mg PO UTDICT #6 tab 08/13/18 COPD: No DVT: No - Suicide/Smoking/Psychosocial Hx Smoking History: Current every day smoker Have you smoked in the past 12 months: Yes Number of Cigarettes Smoked Daily: 5 'Breaking Loose' booklet given: 02/11/18 Hx Alcohol Use: No Drug/Substance Use Hx: No Substance Use Type: None ED Treatment Course - LABORATORY CBC & Chemistry Diagram: 08/13/18 02:10 08/13/18 02:10 Medical Decision Making - Medical Decision Making 08/13/18 01:33 A/P: 48-year-old woman with 1 day of flulike symptoms Influenza testing CBC, CMP Chest x-ray Urinalysis, urine culture Normal saline Zofran 4 mg IV Reassess 08/13/18 04:11 Chest x-rays read by me: Angles clear. Cardiac silhouette is within normal limits. Rouse are clear without mass, consolidation or infiltrate noted. Chest x-rays grossly unchanged from study performed 02/11/18. Laboratory testing is unremarkable. Influenza testing is negative. I will discharge the patient home with supportive treatment for an upper respiratory infection. *DC/Admit/Observation/Transfer Diagnosis at time of Disposition: Viral syndrome - Discharge Dispostion Disposition: HOME Condition at time of disposition: Fair Decision to Admit order: No - Prescriptions Prescriptions: Azithromycin [Zithromax 250mg Tablets -] 250 mg PO UTDICT #6 tab - Referrals - Patient Instructions Additional Instructions: Rest, drink lots of fluids: Teas, water, soups, Pedialyte Saltwater gargles Steamy showers/seem to face break up mucus Avoid contact with others until fevers and cough resolved Lots of handwashing and good hygiene Continue hyga-ryu-ngvwala medications for symptomatic relief Tylenol or Motrin for fever and pain Followup with private physician in one to 2 days as needed Return to emergency department for worsened symptoms, fevers, dehydration El alfredoogelaos lquidos: ts, agua, sopas, Pedialyte grgaras de agua salada Duchas Steamy / parecen enfrentar aflojar la mucosidad Evite el contacto con otras personas hasta que la fiebre y la tos resueltos Un montn de lavado de lico y la higiene Continuar utwt-kum-ducrrjf medicamentos para el alivio sintomtico Tylenol o Motrin para la fiebre y el dolor Followup con el mdico privado en neftaly o 2 castro segn sea necesario Regresar a urgencias por sntomas empeoraron, fiebres, deshidratacin - Post Discharge Activity
[2018-08-13] MEDS ORDERED: ONDANSETRON 4 MG/2 ML VIAL IVPUSH ONE (01:35)
[2018-08-13] MEDS ORDERED: SODIUM CHLORIDE 1,000 ML IV STA (01:35)
[2018-08-13] MEDS ORDERED: ONDANSETRON 4 MG/2 ML VIAL ONE (02:01)
[2018-08-13 02:16] LABS: BASO % 0.3 % (0-2.0); EOS % 1.3 % (0-4.5); HEMATOCRIT 39.8 % (32.4-45.2); HEMOGLOBIN 13.7 GM/dL (10.7-15.3); LYMPH % 9.7 % (8-40); MCH 30.3 pg (25.7-33.7); MCHC 34.4 g/dl (32.0-36.0); MEAN CELL VOLUME 88.3 fl (80-96); MEAN PLT VOLUME 7.7 fl (7.5-11.1); MONO % 6.5 % (3.8-10.2); NEUT % 82.2 % (42.8-82.8); PLATELET COUNT 193 K/MM3 (134-434); RBC 4.51 M/mm3 (3.60-5.2); RDW 13.1 % (11.6-15.6); WHITE BLOOD COUNT 7.9 K/mm3 (4.0-10.0)
[2018-08-13 02:39] LABS: PH,URINE 7.5 (5.0-8.0); URINE APPEARANCE CLOUDY; URINE BILIRUBIN NEGATIVE (NEGATIVE); URINE COLOR YELLOW; URINE GLUCOSE (UA) NEGATIVE (NEGATIVE); URINE KETONE NEGATIVE (NEGATIVE); URINE LEUK ESTERASE NEGATIVE (NEGATIVE); URINE NITRITE NEGATIVE (NEGATIVE); URINE PROTEIN NEGATIVE (NEGATIVE); URINE UROBILINOGEN 0.2 mg/dL (0.2-1.0)
[2018-08-13 02:44] LABS: ALBUMIN 3.8 g/dl (3.4-5.0); ALK PHOS 88 U/L (45-117); BILIRUBIN,TOTAL 0.5 mg/dL (0.2-1); CALCIUM 9.2 mg/dL (8.5-10.1); CO2 29 mmol/L (21-32); CREATININE 0.7 mg/dL (0.55-1.3); LIPASE 108 U/L (73-393); POTASSIUM 4.3 mmol/L (3.5-5.1); SGOT/AST 18 U/L (15-37); SGPT/ALT 31 U/L (13-61); SODIUM 138 mmol/L (136-145); TOT PROT 7.2 g/dl (6.4-8.2)
[2018-08-13 03:01] LABS: ANION GAP 4 MMOL/L (8-16); BLOOD UREA NITROGEN 16 mg/dL (7-18); CHLORIDE 106 mmol/L (98-107); GLUCOSE,RANDOM 113 mg/dL (74-106)
[2018-08-13 06:50] VITALS: BP 115/62; PULSE 74
== END 2018-08-13 04:30 | disposition home or self-care (01) ==
LOC: JER 23:59
PROC: 3E033GC Introduction of Other Therapeutic Substance into Peripheral Vein, Percutaneous Approach (ICD-10-PCS; principal; 2018-08-12)
DX: B34.9 Viral infection, unspecified (principal)
CPT/HCPCS: 36415; 71046-TC-FY; 80053; 81003; 83690; 85025; 87086; 87804; 99281-25; J7030

== ENCOUNTER 2019-06-02 11:48 | Emergency (ER) | payer OTHER ==
[2019-06-02 12:20] VITALS: BP 111/6; PULSE 66; TEMP 98.4; BMI 23.7
[2019-06-02] MEDS ORDERED: KETOROLAC TROMETHAMINE 60 MG/2 ML VIAL IM ONE (14:04)
[2019-06-02] MEDS ORDERED: KETOROLAC TROMETHAMINE 60 MG/2 ML VIAL ONE (14:06)
--- NOTE | 2019-06-02 14:06 | PDOC ---
History of Present Illness - General Chief Complaint: Back Pain Stated Complaint: BACK PAIN Time Seen by Provider: 06/02/19 13:51 - History of Present Illness Initial Comments: 06/02/19 14:04 49-year-old female without comorbidities presents for evaluation of mid and lower back pain x4 days without systemic symptoms radicular symptoms or loss of bowel or bladder function. Past History - Past Medical History Allergies/Adverse Reactions: Allergies Allergy/AdvReac Type Severity Reaction Status Date / Time No Known Allergies Allergy Verified 06/02/19 12:18 Home Medications: Ambulatory Orders Azithromycin [Zithromax 250mg Tablets -] 250 mg PO UTDICT #6 tab 08/13/18 Cyclobenzaprine HCl [Flexeril 10 mg] 10 mg PO HS PRN #10 tablet 06/02/19 COPD: No DVT: No - Immunization History Immunization Up to Date: Yes - Psycho Social/Smoking Cessation Hx Smoking History: Never smoked Have you smoked in the past 12 months: Yes Number of Cigarettes Smoked Daily: 5 Information on smoking cessation initiated: No 'Breaking Loose' booklet given: 02/11/18 Hx Alcohol Use: No Drug/Substance Use Hx: No Substance Use Type: None Review of Systems - Review of Systems Musculoskeletal: Yes: Back Pain *Physical Exam - Vital Signs Last Vital Signs Temp Pulse Resp BP Pulse Ox 98.4 F 66 16 111/6 L 100 06/02/19 12:18 06/02/19 12:18 06/02/19 12:18 06/02/19 12:18 06/02/19 12:18 - Physical Exam 06/02/19 14:04 Thoracic and lumbar spine mild parathoracic and lumbar musculature spasm and tenderness. No midline tenderness. 5 out of 5 strength bilateral upper and lower extremities without gross sensorimotor deficits neurovascular intact Medical Decision Making - Medical Decision Making 06/02/19 14:04 Back strain. Toradol in the emergency room. Start diclofenac tomorrow as patient has a prescription at home. Flexeril added return to the emergency room for worsening symptoms follow-up with neurosurgery Discharge - Discharge Information Problems reviewed: Yes Clinical Impression/Diagnosis: Back strain Condition: Stable Disposition: HOME - Admission No - Additional Discharge Information Prescriptions: Cyclobenzaprine HCl [Flexeril 10 mg] 10 mg PO HS PRN #10 tablet PRN Reason: Muscle Spasms - Follow up/Referral Referrals: Mikayla Treadwell MD [Primary Care Provider] - Wade Galan MD, FAANS [Staff Physician] - - Patient Discharge Instructions Additional Instructions: Return to the emergency room for worsening symptoms. You may resume the diclofenac tomorrow. Do not take any other anti-inflammatories today as this may cause stomach problems. You were given an injection of a long-acting anti- inflammatory in the emergency room. You may start the muscle relaxer tonight 1 pill before bedtime will make you sleepy. Without fail follow-up with neurosurgery in 2 to 3 days for further evaluation and treatment options and return to the emergency room should symptoms worsen - Post Discharge Activity
== END 2019-06-02 14:11 | disposition home or self-care (01) ==
LOC: JERFT 11:48
PROC: 3E0233Z Introduction of Anti-inflammatory into Muscle, Percutaneous Approach (ICD-10-PCS; principal; 2019-06-02)
DX: S39.012A Strain of muscle, fascia and tendon of lower back, initial encounter (principal); X58.XXXA Exposure to other specified factors, initial encounter; Y93.89 Activity, other specified; Y92.89 Other specified places as the place of occurrence of the external cause; Z87.891 Personal history of nicotine dependence
CPT/HCPCS: 96372; 99281-25

== ENCOUNTER 2020-02-09 14:18 | Emergency (ER) | payer OTHER ==
[2020-02-09 14:24] VITALS: BP 133/76; PULSE 70; TEMP 98.2; BMI 20.9
[2020-02-09] MEDS ORDERED: KETOROLAC TROMETHAMINE 60 MG/2 ML VIAL IM ONE (14:24)
--- NOTE | 2020-02-09 14:27 | PDOC ---
Rapid Medical Evaluation Chief Complaint: Injury Time Seen by Provider: 02/09/20 14:23 Medical Evaluation: Allergies Allergy/AdvReac Type Severity Reaction Status Date / Time No Known Allergies Allergy Verified 02/09/20 14:23 Vital Signs Temp Pulse Resp BP Pulse Ox 98.2 F 70 19 133/76 100 02/09/20 14:21 02/09/20 14:21 02/09/20 14:21 02/09/20 14:21 02/09/20 14:21 02/09/20 14:24 CC: lbp after lifting a heavy item at work today, pain radiated down left leg, no previous LBP. No extremity weakness. No numbness, no incontinence Exam: left paraspinous tenderness at l4-5 , + left sciatica tenderness, able to left leg leg off wheelchair Plan: toradol (labs reviewed), xray Discharge Disposition - Diagnosis Low back pain - Referrals - Patient Instructions - Post Discharge Activity
[2020-02-09] MEDS ORDERED: KETOROLAC TROMETHAMINE 60 MG/2 ML VIAL ONE (14:40)
--- NOTE | 2020-02-09 14:40 | PDOC ---
History of Present Illness - General Chief Complaint: Injury Stated Complaint: LOWER BACK PAIN Time Seen by Provider: 02/09/20 14:23 History Source: Patient, Family - History of Present Illness Occurred: reports: this afternoon Pain Location: reports: back Past History - Medical History Allergies/Adverse Reactions: Allergies Allergy/AdvReac Type Severity Reaction Status Date / Time No Known Allergies Allergy Verified 02/09/20 14:23 Home Medications: Ambulatory Orders Azithromycin [Zithromax 250mg Tablets -] 250 mg PO UTDICT #6 tab 08/13/18 Cyclobenzaprine HCl [Flexeril 10 mg] 10 mg PO HS PRN #10 tablet 06/02/19 Cyclobenzaprine HCl [Flexeril 10 mg] 10 mg PO HS #7 tablet 02/09/20 Naproxen 500 mg PO BID #14 tablet 02/09/20 COPD: No DVT: No - Reproductive History Is Patient Now?: No - Immunization History Immunization Up to Date: Yes - Psycho-Social/Smoking History Smoking History: Current every day smoker Have you smoked in the past 12 months: Yes Number of Cigarettes Smoked Daily: 5 Information on smoking cessation initiated: Yes 'Breaking Loose' booklet given: 02/11/18 - Substance Abuse Hx (Audit-C & DAST Scrn) How often the patient has a drink containing alcohol: Never Score: In Men: 4 or > Positive; In Women: 3 or > Positive: 0 Screen Result (Pos requires Nsg. Audit-10AR): Negative In the last yr the pt used illegal drug/Rx for NonMed reason: No Score: Yes response is considered Positive: 0 Screen Result (Positive result requires Nsg. DAST-10): Negative Trauma Specific PMHX - Complaint Specific PMHX Arthritis: No Back Injury: No Review of Systems - Review of Systems Constitutional: No: Chills, Fever ABD/GI: No: Nausea, Vomiting, Abdominal cramping : No: Dysuria, Flank Pain Musculoskeletal: Yes: Back Pain Neurological: No: Numbness, Tingling, Weakness *Physical Exam - Vital Signs Last Vital Signs Temp Pulse Resp BP Pulse Ox 98.2 F 70 19 133/76 100 02/09/20 14:21 02/09/20 14:21 02/09/20 14:21 02/09/20 14:21 09/30/20 14:21 - Physical Exam General Appearance: Yes: Appropriately Dressed, Severe Distress HEENT: positive: Normal Voice Neck: positive: Supple Respiratory/Chest: negative: Respiratory Distress Gastrointestinal/Abdominal: positive: Normal Bowel Sounds, Tender. negative: Soft, Distended, Guarding, Rebound Musculoskeletal: positive: Vertebral Tenderness (to L lower back and superior portion of gluteus, reports pain w/ CRISTELA). negative: CVA Tenderness Integumentary: positive: Dry, Warm Neurologic: positive: Fully Oriented, Alert, Normal Mood/Affect, Motor Strength 5/5 Medical Decision Making - Medical Decision Making 02/09/20 14:38 49 yo F, p/w LBP radiating to L buttocks and started shortly after leaving heavy item at work today. No sensory changes or lower extremity weakness. Has not taken any pain meds. Denies history of similar pain in the past. No abdominal pain, dysuria, nausea, vomiting, fever or chills. see exam M/l MSK back pain No red flags at this time Pain control in ED and reassess XR ordered from triage and unremarkable 02/09/20 15:42 Pt reports feeling better. Will dc w/ pain control. Reasons to return d/w pt Discharge - Discharge Information Problems reviewed: Yes Clinical Impression/Diagnosis: Low back pain Qualifiers: Chronicity: acute Back pain laterality: left Sciatica presence: without sciatica Qualified Code(s): M54.5 - Low back pain Condition: Improved Disposition: HOME - Additional Discharge Information Prescriptions: Cyclobenzaprine HCl [Flexeril 10 mg] 10 mg PO HS #7 tablet Naproxen 500 mg PO BID #14 tablet - Follow up/Referral Referrals: Candido Pedro II, DO [Primary Care Provider] - - Patient Discharge Instructions Patient Printed Discharge Instructions: DI for Low Back Pain Additional Instructions: Most back pain is caused by muscular causes and usually resolve in time Treatment is aimed at controlling pain and getting rest Take pain medication as prescribed If pain persist after 2 weeks, please follow-up with your PMD - Post Discharge Activity Work/Back to School Note: Back to Work
[2020-02-09] MEDS ORDERED: morphine CARPU-JECT 4 MG/1 ML DISP.SYRIN IVPUSH ONE (14:56)
[2020-02-09] MEDS ORDERED: MORPHINE SULFATE 2 MG/ML VIAL ONE (14:58)
[2020-02-09] MEDS ORDERED: morphine CARPU-JECT 4 MG/1 ML DISP.SYRIN IM ONE (15:00)
== END 2020-02-09 16:00 | disposition home or self-care (01) ==
LOC: JERFT 14:18
PROC: 3E023NZ Introduction of Analgesics, Hypnotics, Sedatives into Muscle, Percutaneous Approach (ICD-10-PCS; principal; 2020-02-09)
PROC: 3E023GC Introduction of Other Therapeutic Substance into Muscle, Percutaneous Approach (ICD-10-PCS; 2020-02-09)
DX: M54.5 Low back pain (principal)
CPT/HCPCS: 72100-TC-FY; 99284-25

== ENCOUNTER 2021-03-16 19:01 | Emergency (ER) | payer OTHER ==
[2021-03-16 19:08] VITALS: BP 118/70; PULSE 67; TEMP 97; BMI 21.9
[2021-03-16] MEDS ORDERED: ACETAMINOPHEN 1000 MG/100 ML VIAL IVPB ONE (21:30)
[2021-03-16] MEDS ORDERED: SODIUM CHLORIDE 1,000 ML IV STA (21:30)
[2021-03-16] MEDS ORDERED: ONDANSETRON 4 MG/2 ML VIAL IVPUSH ONE (21:30)
[2021-03-16] MEDS ORDERED: ONDANSETRON 4 MG/2 ML VIAL ONE (21:43)
[2021-03-16] MEDS ORDERED: ACETAMINOPHEN INJECTION 100 ML IVPB ONE (21:43)
[2021-03-16 21:57] LABS: EOS % 0.6 % (0-4.5); HEMATOCRIT 40.5 % (32.4-45.2); HEMOGLOBIN 13.9 GM/dL (10.7-15.3); LYMPH % 19.7 % (8-40); MCHC 34.2 g/dl (32.0-36.0); MEAN CELL VOLUME 87.6 fl (80-96); MEAN PLT VOLUME 7.9 fl (7.5-11.1); MONO % 4.1 % (3.8-10.2); NEUT % 74.6 % (42.8-82.8); PLATELET COUNT 213 10^3/uL (134-434); RBC 4.62 M/mm3 (3.60-5.2); RDW 13.6 % (11.6-15.6); WHITE BLOOD COUNT 7.9 K/mm3 (4.0-10.0)
[2021-03-16 22:07] LABS: CHLORIDE 108 mmol/L (98-107); SODIUM 140 mmol/L (136-145)
[2021-03-16 22:08] LABS: CALCIUM 8.8 mg/dL (8.5-10.1)
[2021-03-16 22:09] LABS: ALBUMIN 3.8 g/dl (3.4-5.0); ANION GAP 7 MMOL/L (8-16); BLOOD UREA NITROGEN 8.8 mg/dL (7-18); CO2 25 mmol/L (21-32); GLUCOSE,RANDOM 122 mg/dL (74-106)
[2021-03-16 22:12] LABS: CREATININE 0.7 mg/dL (0.55-1.3); SGOT/AST 19 U/L (15-37); SGPT/ALT 22 U/L (13-61)
[2021-03-16 22:15] LABS: ALK PHOS 80 U/L (45-117); BILIRUBIN,TOTAL 0.3 mg/dL (0.2-1); TOT PROT 6.9 g/dl (6.4-8.2)
[2021-03-16 22:22] LABS: ARTERIAL BLD GAS O2 SATURATION 99.7 % (95-98); ARTERIAL BLOOD GAS BASE EXCESS -2.8 mmol/L (-2-2); ARTERIAL BLOOD GAS PO2 325.6 mmHg (80-100); ARTERIAL BLOOD GAS pH 7.392 (7.350-7.450)
[2021-03-16 22:23] LABS: ALLENS TEST POSITIVE
[2021-03-16 22:41] LABS: URINE APPEARANCE CLEAR; URINE BILIRUBIN NEGATIVE (NEGATIVE); URINE COLOR YELLOW; URINE GLUCOSE (UA) NEGATIVE (NEGATIVE); URINE KETONE NEGATIVE (NEGATIVE); URINE LEUK ESTERASE NEGATIVE (NEGATIVE); URINE NITRITE NEGATIVE (NEGATIVE); URINE PROTEIN NEGATIVE (NEGATIVE); URINE UROBILINOGEN 0.2 mg/dL (0.2-1.0)
[2021-03-17] MEDS ORDERED: KETOROLAC TROMETHAMINE 30 MG/1 ML VIAL IVPUSH ONE (00:04)
[2021-03-17] MEDS ORDERED: KETOROLAC TROMETHAMINE 30 MG/1 ML VIAL ONE (00:33)
== END 2021-03-17 01:18 | disposition home or self-care (01) ==
LOC: JER 19:01
PROC: 3E0333Z Introduction of Anti-inflammatory into Peripheral Vein, Percutaneous Approach (ICD-10-PCS; principal; 2021-03-16)
PROC: 3E0333Z Introduction of Anti-inflammatory into Peripheral Vein, Percutaneous Approach (ICD-10-PCS; 2021-03-16)
PROC: 3E033GC Introduction of Other Therapeutic Substance into Peripheral Vein, Percutaneous Approach (ICD-10-PCS; 2021-03-16)
PROC: 3E0337Z Introduction of Electrolytic and Water Balance Substance into Peripheral Vein, Percutaneous Approach (ICD-10-PCS; 2021-03-16)
DX: R10.30 Lower abdominal pain, unspecified (principal); R11.2 Nausea with vomiting, unspecified
CPT/HCPCS: 36415; 36600; 74177-TC; 80053; 81003; 82375; 82550; 82553; 82803; 83605; 83690; 84484; 85025; 87086; 93005; 93010; 96361; 96374; 96375; 99285-25; J0131; Q9967

== ENCOUNTER 2021-05-20 17:28 | Emergency (ER) | payer OTHER ==
[2021-05-20 17:35] VITALS: BP 122/73; PULSE 73; TEMP 97; BMI 22.2
[2021-05-20] MEDS ORDERED: KETOROLAC TROMETHAMINE 30 MG/1 ML VIAL IM ONE (18:06)
[2021-05-20] MEDS ORDERED: KETOROLAC TROMETHAMINE 30 MG/1 ML VIAL ONE (18:28)
== END 2021-05-20 18:34 | disposition home or self-care (01) ==
LOC: JERFT 17:28
PROC: 3E023GC Introduction of Other Therapeutic Substance into Muscle, Percutaneous Approach (ICD-10-PCS; principal; 2021-05-20)
DX: S99.921A Unspecified injury of right foot, initial encounter (principal); W22.8XXA Striking against or struck by other objects, initial encounter
CPT/HCPCS: 96372; 99284-25

== ENCOUNTER 2021-06-27 13:20 | Emergency (ER) | payer OTHER ==
[2021-06-27 13:35] VITALS: BP 105/69; PULSE 80; TEMP 97.7; BMI 24.0
[2021-06-27] MEDS ORDERED: diazePAM 2 MG TABLET PO ONE (14:14)
[2021-06-27] MEDS ORDERED: KETOROLAC TROMETHAMINE 30 MG/1 ML VIAL IM ONE (14:14)
[2021-06-27] MEDS ORDERED: diazePAM 2 MG TABLET ONE (14:24)
[2021-06-27] MEDS ORDERED: KETOROLAC TROMETHAMINE 30 MG/1 ML VIAL ONE (14:24)
== END 2021-06-27 14:31 | disposition home or self-care (01) ==
LOC: JER 13:20 → JERFT 13:20
PROC: 3E0233Z Introduction of Anti-inflammatory into Muscle, Percutaneous Approach (ICD-10-PCS; principal; 2021-06-27)
DX: M54.50 Low back pain, unspecified (principal)
CPT/HCPCS: 99284-25

== ENCOUNTER 2022-01-18 04:28 | Day surgery (SDC) | payer OTHER ==
[2022-01-15 16:32] VITALS: BMI 24.7
[2022-01-18] MEDS ORDERED: LIDOCAINE 1%/EPI 1:100000 (20 ML MULTI DOSE VIAL) ONE (10:51)
[2022-01-18] MEDS ORDERED: MIDAZOLAM HCL 2 MG/2 ML SINGLE DOSE VIAL ONE (11:29)
[2022-01-18] MEDS ORDERED: ceFAZolin SODIUM 1 GM VIAL IVPB ONE (11:40)
[2022-01-18] MEDS ORDERED: KETOROLAC TROMETHAMINE 30 MG/1 ML VIAL ONE (11:40)
[2022-01-18] MEDS ORDERED: DEXAMETHASONE SOD PHOSPHATE 4 MG/1 ML VIAL ONE (11:40)
[2022-01-18] MEDS ORDERED: ONDANSETRON 4 MG/2 ML VIAL ONE (11:40)
[2022-01-18] MEDS ORDERED: ceFAZolin SODIUM 1 GM VIAL ONE (11:40)
[2022-01-18] MEDS ORDERED: LIDOCAINE 1%/EPI 1:100000 (50 ML MULTI DOSE VIAL) INF ONE ×2 (11:45)
[2022-01-18] MEDS ORDERED: ONDANSETRON 4 MG/2 ML VIAL IVPUSH PRN (13:07)
[2022-01-18] MEDS ORDERED: oxyCODONE HCL 5 MG TABLET PO PRN ×2 (13:07)
[2022-01-18] MEDS ORDERED: LACTATED RINGERS SOLUTION 1,000 ML IV SCH (13:15)
[2022-01-18 14:04] VITALS: RESP 20
[2022-01-18 15:15] VITALS: BP 110/70; PULSE 68; TEMP 97
== END 2022-01-18 15:00 | disposition home or self-care (01) ==
LOC: JASU-SURG 04:28
PROVIDERS: ATTEND Surgery
PROC: 0HBT0ZZ Excision of Right Breast, Open Approach (ICD-10-PCS; principal; 2022-01-18 11:44)
DX: N60.41 Mammary duct ectasia of right breast (principal)
CPT/HCPCS: 88307-TC; 94760

== ENCOUNTER 2022-01-25 20:37 | Emergency (ER) | payer OTHER ==
[2022-01-25 20:45] VITALS: BP 114/74; PULSE 91; RESP 18; TEMP 98.6; BMI 25.3
[2022-01-25] MEDS ORDERED: PANTOPRAZOLE SODIUM 40 MG VIAL IVPB ONE (22:25)
[2022-01-25] MEDS ORDERED: MAG HYDROX/AL HYDROX/SIMETH 30 ML UNIT-DOSE CUP PO ONE ×2 (22:32→23:41)
[2022-01-25] MEDS ORDERED: PANTOPRAZOLE SODIUM 40 MG/100 ML BAG IVPB ONE ×2 (22:35→23:35)
[2022-01-25 23:19] LABS: BASO % 0.4 % (0-2.0); EOS % 2.1 % (0-4.5); HEMATOCRIT 41.1 % (32.4-45.2); HEMOGLOBIN 14.2 GM/dL (10.7-15.3); LYMPH % 33.8 % (8-40); MCHC 34.7 g/dl (32.0-36.0); MEAN CELL VOLUME 86.6 fl (80-96); MEAN PLT VOLUME 8.1 fl (7.5-11.1); MONO % 10.5 % (3.8-10.2); NEUT % 53.2 % (42.8-82.8); PLATELET COUNT 188 10^3/uL (134-434); RBC 4.75 M/mm3 (3.60-5.2); RDW 13.7 % (11.6-15.6); WHITE BLOOD COUNT 4.1 K/mm3 (4.0-10.0)
[2022-01-25 23:28] LABS: INR 1.09 (0.83-1.09); PROTHROMBIN TIME (PATIENT) 12.5 SEC (9.7-13.0)
[2022-01-25] MEDS ORDERED: MAG HYDROX/AL HYDROX/SIMETH 30 ML UNIT-DOSE CUP ONE ×2 (23:35→23:50)
[2022-01-25 23:38] LABS: CHLORIDE 104 mmol/L (98-107); SODIUM 140 mmol/L (136-145)
[2022-01-25 23:39] LABS: ALBUMIN 3.6 g/dl (3.4-5.0); ANION GAP 7 MMOL/L (8-16); CALCIUM 8.7 mg/dL (8.5-10.1); CO2 30 mmol/L (21-32); GLUCOSE,RANDOM 96 mg/dL (74-106)
[2022-01-25] MEDS ORDERED: FAMOTIDINE 20 MG/50 ML IVPB 20 MG/50 ML MG IVPB ONE (23:40)
[2022-01-25 23:43] LABS: CREATININE 0.8 mg/dL (0.55-1.3); SGOT/AST 20 U/L (15-37); SGPT/ALT 34 U/L (13-61)
[2022-01-25 23:45] LABS: ALK PHOS 84 U/L (45-117); BILIRUBIN,TOTAL 0.5 mg/dL (0.2-1)
== END 2022-01-26 00:30 | disposition home or self-care (01) ==
LOC: JER 20:37
PROC: 3E033GC Introduction of Other Therapeutic Substance into Peripheral Vein, Percutaneous Approach (ICD-10-PCS; principal; 2022-01-25)
DX: K29.70 Gastritis, unspecified, without bleeding (principal)
CPT/HCPCS: 36415; 71046-TC-FY; 76705-TC; 80053; 83690; 84484; 85025; 85610; 93005; 93010; 99285-25